=== PATIENT | female | born 1990 | race Caucasian/White ===

== ENCOUNTER 2018-07-25 18:47 | Emergency (ER) | payer BC ==
[~2018-07-25] VITALS: Ht 167.6 cm; Wt 86.4 kg
[2018-07-25 19:06] VITALS: Ht 167.6 cm; Wt 86.4 kg
[2018-07-25] MEDS ORDERED: KEFLEX500 MG PO (19:08)
[2018-07-25] MEDS ORDERED: LIPITOR20 MG PO (19:08)
[2018-07-25] MEDS ORDERED: TOPROL XL50 MG PO (19:09)
[2018-07-25] MEDS ORDERED: ELAVIL25 MG PO (19:09)
[2018-07-25] MEDS ORDERED: GLUCOPHAGE1000 MG PO (19:09)
[2018-07-25] MEDS ORDERED: NEURONTIN 300300 MG PO (19:09)
[2018-07-25] MEDS ORDERED: LEVEMIR IN100 UNITS/ SC (19:10)
[2018-07-25] MEDS ORDERED: NOVOLOG100 UNIT/1 SC (19:10)
[2018-07-25 20:09] LABS: BASOPHILS 0.4 % (0-2); EOSINOPHILS 1.9 % (0-7); HEMATOCRIT 37.7 % (36.0-48.0); HEMOGLOBIN 12.9 g/dL (12-16); IMMATURE GRANULOCYTES 0.1 % (0-5); LYMPHOCYTES 33.7 % (15-50); MCH 28.3 pg (26.0-34.0); MCHC 34.2 g/dL (31.0-37.0); MCV 82.7 fL (80.0-100.0); MEAN PLATELET VOLUME 9.1 fL (7.4-10.4); MONOCYTES 8.2 % (2-11); NEUTROPHILS 55.7 % (40-80); PLATELET COUNT 364 10x3/uL (130-400); RBC 4.56 10x6/uL (4.00-5.40); RDW 12.3 % (11.5-14.5); WBC 9.5 10x3/uL (4.8-10.8)
[2018-07-25 20:35] LABS: ALBUMIN 2.9 g/dL (3.4-5.0); ALKALINE PHOSPHATASE 81 U/L (46-116); ALT (SGPT) 34 U/L (10-68); BILIRUBIN - TOTAL 0.28 mg/dL (0.2-1.3); CALC OSMOLALITY 277 mosm/kg (275-300); CALCIUM 8.9 mg/dL (8.5-10.1); CARBON DIOXIDE 29.8 mmol/L (21.0-32.0); CHLORIDE - SERUM 102 mmol/L (98-107); CREATININE - SERUM 0.6 mg/dL (0.6-1.3); GLUCOSE 108 mg/dL (74-106); POTASSIUM - SERUM 3.6 mmol/L (3.5-5.1); PROTEIN - SERUM 7.7 g/dL (6.4-8.2); SODIUM 138 mmol/L (136-145); UREA NITROGEN 15 mg/dL (7-18); eGFR NON AFRICAN AMERICAN > 90 mL/min (90-120)
[2018-07-25] MEDS ORDERED: CLEOCIN HCL300 MG PO (20:55)
[2018-07-25 21:24] VITALS: BP 135/85
== END 2018-07-25 21:24 | disposition home or self-care (01) ==
LOC: D.ER 18:47
PROVIDERS: Emergency Medicine
DX: L03.032 Cellulitis of left toe (principal)

== ENCOUNTER 2019-01-23 19:02 | Observation (INO) | payer SELFPAY ==
[~2019-01-23] VITALS: Ht 167.6 cm; Wt 96.6 kg
[~2019-01-23 19:02] MED LIST: CLEOCIN HCL300 MG PO; ELAVIL25 MG PO; GLUCOPHAGE1000 MG PO; KEFLEX500 MG PO; LEVEMIR IN100 UNITS/ SC; LIPITOR20 MG PO; NEURONTIN 300300 MG PO; NOVOLOG100 UNIT/1 SC; TOPROL XL50 MG PO
[2019-01-23] MEDS ORDERED: NOVOLOG100 UNIT/1 SC (19:11)
[2019-01-23 19:32] LABS: BASOPHILS 0.3 % (0-2); EOSINOPHILS 1.4 % (0-7); HEMATOCRIT 43.8 % (36.0-48.0); HEMOGLOBIN 15.3 g/dL (12-16); IMMATURE GRANULOCYTES 0.2 % (0-5); LYMPHOCYTES 39.3 % (15-50); MCH 28.3 pg (26.0-34.0); MCHC 34.9 g/dL (31.0-37.0); MEAN PLATELET VOLUME 9.4 fL (7.4-10.4); MONOCYTES 6.6 % (2-11); NEUTROPHILS 52.2 % (40-80); PLATELET COUNT 392 10x3/uL (130-400); RBC 5.41 10x6/uL (4.00-5.40); RDW 12.3 % (11.5-14.5); WBC 10.5 10x3/uL (4.8-10.8)
--- NOTE | 2019-01-23 20:11 | NUR ---
URINE SENT TO LAB
[2019-01-23 20:18] LABS: ALBUMIN 3.3 g/dL (3.4-5.0); ALKALINE PHOSPHATASE 123 U/L (46-116); ALT (SGPT) 29 U/L (10-68); BILIRUBIN - TOTAL 0.28 mg/dL (0.2-1.3); CALCIUM 9.3 mg/dL (8.5-10.1); CARBON DIOXIDE 24.3 mmol/L (21.0-32.0); CHLORIDE - SERUM 95 mmol/L (98-107); CREATININE - SERUM 0.8 mg/dL (0.6-1.3); LIPASE 89 U/L (73-393); POTASSIUM - SERUM 3.7 mmol/L (3.5-5.1); PRO BNP 16 pg/mL (0-125); PROTEIN - SERUM 8.7 g/dL (6.4-8.2); SODIUM 132 mmol/L (136-145); THYROID STIMULATING HORMONE 5.08 uIU/mL (0.36-3.74); UREA NITROGEN 11 mg/dL (7-18); eGFR NON AFRICAN AMERICAN 90 mL/min (90-120)
[2019-01-23 20:20] LABS: APPEARANCE CLEAR (CLEAR); BILIRUBIN NEGATIVE (NEGATIVE); COLOR YELLOW (YELLOW); GLUCOSE 1000 mg/dL (NEGATIVE); KETONE MODERATE mg/dL (NEGATIVE); NITRITE NEGATIVE (NEGATIVE); PROTEIN NEGATIVE (NEGATIVE); UROBILINOGEN NORMAL (NORMAL)
[2019-01-23 20:21] LABS: BACTERIA MODERATE /hpf (NEGATIVE); EPITHELIAL CELLS 0-5 /hpf (0-5)
[2019-01-23 20:21] LABS: CALC OSMOLALITY 282 mosm/kg (275-300); GLUCOSE 439 mg/dL (74-106); TROPONIN-I < 0.017 ng/mL (0.000-0.060)
[2019-01-23 20:22] LABS: HCG URINE NEGATIVE (NEGATIVE)
[2019-01-23 20:37] LABS: UDS - AMPHET NEGATIVE QUAL (NEGATIVE); UDS - BARB NEGATIVE QUAL (NEGATIVE); UDS - BENZO NEGATIVE QUAL (NEGATIVE); UDS - COCAINE NEGATIVE QUAL (NEGATIVE); UDS - OPIATE NEGATIVE QUAL (NEGATIVE); UDS - PCP NEGATIVE QUAL (NEGATIVE); UDS - THC NEGATIVE QUAL (NEGATIVE)
[2019-01-23 20:39] VITALS: BP 114/62
[2019-01-23 21:05] VITALS: BP 122/88
--- NOTE | 2019-01-23 22:10 | NUR ---
CALLED REPORT TO YAJAIRA BROOKS AFFTER ROOM CHANGE TO ICU.
[2019-01-23 22:11] VITALS: BP 142/103
[2019-01-23 22:25] VITALS: BP 128/78
[2019-01-23 23:00] VITALS: BP 137/88
--- NOTE | 2019-01-23 23:30 | NUR ---
REPORT RECEIVED. PT ARRIVED TO UNIT VIA WHEELCHAIR FROM ER WITH NURSE AND . PT TRANSFERS SELF TO ICU BED, WITHOUT DIFFICULTY. PT ALERT AND ORIENTED. NO S/S OF DISTRESS. IV TO LEFT AC WITH NS AT 125ML/HR. NO NEEDS MADE KNOWN. CALL LIGHT IN REACH. WILL CONTINUE TO OBSERVE.
[2019-01-23 23:38] LABS: CALC OSMOLALITY 285 mosm/kg (275-300); CALCIUM 8.4 mg/dL (8.5-10.1); CARBON DIOXIDE 27.8 mmol/L (21.0-32.0); CHLORIDE - SERUM 101 mmol/L (98-107); CREATININE - SERUM 0.8 mg/dL (0.6-1.3); POTASSIUM - SERUM 3.6 mmol/L (3.5-5.1); SODIUM 136 mmol/L (136-145); UREA NITROGEN 11 mg/dL (7-18); eGFR NON AFRICAN AMERICAN 90 mL/min (90-120)
[2019-01-23 23:39] LABS: GLUCOSE 369 mg/dL (74-106)
[2019-01-24] VITALS (15 sets, daily range): BP systolic 91–130; BP diastolic 47–89; Ht 167.6 cm; Wt 96.6 kg
--- NOTE | 2019-01-24 01:20 | NUR ---
PT RESTING WITH EYES CLOSED AND CHEST RISING. NO S/S OF DISTRESS. WILL CONTINUE TO OBSERVE.
--- NOTE | 2019-01-24 03:26 | NUR ---
PT RESTING WITH EYES CLOSED AND CHEST RISING. NO S/S OF DISTRESS. CALL LIGHT IN REACH. EASILY AWOKEN TO VERBAL STIMULI. WILL CONTINUE TO OBSERVE.
[2019-01-24 04:03] LABS: BASOPHILS 0.3 % (0-2); EOSINOPHILS 2.6 % (0-7); HEMATOCRIT 37.8 % (36.0-48.0); HEMOGLOBIN 12.7 g/dL (12-16); IMMATURE GRANULOCYTES 0.2 % (0-5); LYMPHOCYTES 48.6 % (15-50); MCH 27.7 pg (26.0-34.0); MCHC 33.6 g/dL (31.0-37.0); MCV 82.4 fL (80.0-100.0); MEAN PLATELET VOLUME 9.4 fL (7.4-10.4); MONOCYTES 9.7 % (2-11); NEUTROPHILS 38.6 % (40-80); RBC 4.59 10x6/uL (4.00-5.40); RDW 12.6 % (11.5-14.5); WBC 8.8 10x3/uL (4.8-10.8)
[2019-01-24 04:34] LABS: PLATELET COUNT 313 10x3/uL (130-400)
[2019-01-24 04:54] LABS: KETONE - SERUM NEGATIVE (NEGATIVE)
[2019-01-24 04:55] LABS: ALBUMIN 2.5 g/dL (3.4-5.0); ALKALINE PHOSPHATASE 88 U/L (46-116); ALT (SGPT) 22 U/L (10-68); BILIRUBIN - TOTAL 0.25 mg/dL (0.2-1.3); CALCIUM 8.1 mg/dL (8.5-10.1); CARBON DIOXIDE 24.8 mmol/L (21.0-32.0); CHLORIDE - SERUM 107 mmol/L (98-107); CREATININE - SERUM 0.6 mg/dL (0.6-1.3); POTASSIUM - SERUM 3.4 mmol/L (3.5-5.1); PROTEIN - SERUM 6.7 g/dL (6.4-8.2); SODIUM 140 mmol/L (136-145); UREA NITROGEN 13 mg/dL (7-18); eGFR NON AFRICAN AMERICAN > 90 mL/min (90-120)
[2019-01-24 05:00] LABS: CALC OSMOLALITY 280 mosm/kg (275-300); GLUCOSE 134 mg/dL (74-106)
--- NOTE | 2019-01-24 07:00 | NUR ---
REPORT RECIEVED FROM THE OFF GOING RN. SEE ASSESSMENT IN THE PTS FLOW SHEET. PT DENIES PAIN. VSS. AT THIS TIME. MEAL TRAY PROVIDED FOR THE PT. CALL LIGTH IN REACH. WILL CONT POC.
--- NOTE | 2019-01-24 07:00 | NUR ---
PT USES CALL LIGHT FOR ASSIST WITH MONITOR WIRES, TO GO TO BATHROOM. ASSIST GIVEN. PT STATES THAT SHE HAD URINARY OUTPUT. REPORTED TO RECEIVING NURSE.
[2019-01-24 08:11] LABS: CALC OSMOLALITY 281 mosm/kg (275-300); CALCIUM 8.2 mg/dL (8.5-10.1); CARBON DIOXIDE 24.4 mmol/L (21.0-32.0); CHLORIDE - SERUM 105 mmol/L (98-107); CKMB 0.8 U/L (0.0-3.6); CREATINE KINASE 42 UL (21-215); CREATININE - SERUM 0.5 mg/dL (0.6-1.3); GLUCOSE 148 mg/dL (74-106); POTASSIUM - SERUM 3.5 mmol/L (3.5-5.1); SODIUM 139 mmol/L (136-145); UREA NITROGEN 14 mg/dL (7-18); eGFR NON AFRICAN AMERICAN > 90 mL/min (90-120)
[2019-01-24 08:12] LABS: TROPONIN-I < 0.017 ng/mL (0.000-0.060)
[2019-01-24 08:18] LABS: KETONE - SERUM NEGATIVE (NEGATIVE)
--- NOTE | 2019-01-24 11:00 | NUR ---
MEAL TRAY PROVIDED FOR THE PT.
[2019-01-24 11:08] LABS: CALC OSMOLALITY 283 mosm/kg (275-300); CALCIUM 7.8 mg/dL (8.5-10.1); CARBON DIOXIDE 22.4 mmol/L (21.0-32.0); CHLORIDE - SERUM 107 mmol/L (98-107); CREATININE - SERUM 0.7 mg/dL (0.6-1.3); GLUCOSE 265 mg/dL (74-106); POTASSIUM - SERUM 4.4 mmol/L (3.5-5.1); SODIUM 137 mmol/L (136-145); UREA NITROGEN 14 mg/dL (7-18); eGFR NON AFRICAN AMERICAN > 90 mL/min (90-120)
[2019-01-24] MEDS ORDERED: LEVEMIR IN100 UNITS/ SC (12:38)
[2019-01-24] MEDS ORDERED: NOVOLOG100 UNIT/1 SC (12:38)
[2019-01-24] MEDS ORDERED: HUMULIN R100 U/ML SC (12:39)
--- NOTE | 2019-01-24 13:07 | NUR ---
DR PETERSEN CALLED AND VERIFIED DC ORDERS. WILL PLAN TO DC. PT CALLING FRIENDS TO PICK HER UP.
--- NOTE | 2019-01-24 14:02 | NUR ---
DISCHARGE INSTRUCTIONS WENT OVER WITH THE PT. ALL BELONINGS ACCOUNTED FOR. PT LEFT WITH HER FRIEND IN A STABLE CONDITION.
== END 2019-01-24 14:03 | disposition home or self-care (01) ==
LOC: D.ER 19:02 → OBSVTIME 21:04 → D.CVICU 21:04 → D.M2 21:04 → D.ER 21:17 → D.CVICU 22:18
PROVIDERS: Family Medicine; ADMIT Internal Medicine Nephrology; ATTEND Internal Medicine Nephrology
DX: E11.10 Type 2 diabetes mellitus with ketoacidosis without coma (principal); E87.1 Hypo-osmolality and hyponatremia; E11.65 Type 2 diabetes mellitus with hyperglycemia; R07.9 Chest pain, unspecified; Z91.14 Patient's other noncompliance with medication regimen; E78.5 Hyperlipidemia, unspecified; K59.00 Constipation, unspecified; R00.0 Tachycardia, unspecified; I10 Essential (primary) hypertension

== ENCOUNTER 2019-05-20 17:09 | Inpatient (IN) | payer BC ==
[~2019-05-20] VITALS: Ht 167.6 cm; Wt 99.8 kg
[~2019-05-20 17:09] MED LIST changes: +AUGMENTIN 875-11 TAB PO; +HUMULIN R100 U/ML SC
[2019-05-20] MEDS ORDERED: CELEXA20 MG PO (17:46)
[2019-05-20 18:06] LABS: BASOPHILS 0.2 % (0-2); EOSINOPHILS 1.7 % (0-7); HEMATOCRIT 40.7 % (36.0-48.0); HEMOGLOBIN 13.9 g/dL (12-16); IMMATURE GRANULOCYTES 0.3 % (0-5); LYMPHOCYTES 35.6 % (15-50); MCH 27.9 pg (26.0-34.0); MCHC 34.2 g/dL (31.0-37.0); MCV 81.7 fL (80.0-100.0); MEAN PLATELET VOLUME 9.6 fL (7.4-10.4); MONOCYTES 5.6 % (2-11); NEUTROPHILS 56.6 % (40-80); PLATELET COUNT 302 10x3/uL (130-400); RBC 4.98 10x6/uL (4.00-5.40); RDW 12.5 % (11.5-14.5)
[2019-05-20 18:30] LABS: ALBUMIN 3.2 g/dL (3.4-5.0); ALKALINE PHOSPHATASE 111 U/L (30-120); ALT (SGPT) 24 U/L (10-68); BILIRUBIN - TOTAL 0.26 mg/dL (0.2-1.3); CALCIUM 9.3 mg/dL (8.5-10.1); CARBON DIOXIDE 22.3 mmol/L (21.0-32.0); CHLORIDE - SERUM 95 mmol/L (98-107); CREATININE - SERUM 0.8 mg/dL (0.6-1.3); POTASSIUM - SERUM 4.4 mmol/L (3.5-5.1); PROTEIN - SERUM 8.1 g/dL (6.4-8.2); SODIUM 125 mmol/L (136-145); UREA NITROGEN 13 mg/dL (7-18); eGFR NON AFRICAN AMERICAN 90 mL/min (90-120)
[2019-05-20 18:32] LABS: CALC OSMOLALITY 275 mosm/kg (275-300)
[2019-05-20 18:37] LABS: GLUCOSE 535 mg/dL (74-106)
[2019-05-20 18:56] LABS: BILIRUBIN NEGATIVE (NEGATIVE); GLUCOSE 1000 mg/dL (NEGATIVE); KETONE MODERATE mg/dL (NEGATIVE); NITRITE NEGATIVE (NEGATIVE); UROBILINOGEN NORMAL (NORMAL)
--- NOTE | 2019-05-20 19:40 | NUR ---
PT HAS BLISTERS TO RIGHT FOOT. ON BLISTER ON PAD OF FOOT. BLISTERS ON TWO MIDDLE TOES, AND OPEN BLISTER ON GREAT TOE WITH BLOOD TINGED DRAINAGE. GREAT TOE HAS SKIN PEELED BACK. PT DENIES PAIN AT THIS TIME.
--- NOTE | 2019-05-20 21:00 | NUR ---
PT AMBULATED TO REST ROOM INDEPENDENTLY. DRESSING APPLIED TO FOOT PRIOR TO AMBULATING.
[2019-05-20 23:28] VITALS: BP 130/76; BMI 35.6
--- NOTE | 2019-05-21 01:51 | NUR ---
2300)REC'FROM ER VIA . AAO X3.MODERATE AMT. SWELLING OBSERVED.BOTH FEET PARTIAL AMPUTATION LEFT GREAT TOE.RIGHT GREAT TOE BLISTER HAS BUSTED QUARTER IN SIZE WITH SKIN HANGING OFF.2ND,3RD DIME SIZE BLISTERS INTACT BACK OF TOES. WITH APPROX 3 1/2 IN IN LENGTH SUPERIOR SOLE ASPECT OF FOOT.FOOT WARM PINK,GOOD PEDAL PULSE,STATES FEET NUMB. WILL CONTINUE TO MONITOR FOR ANY CHGES IN NEUROVASCULAR STATUS AND FOLLOW CURRENT PLAN OF CARE.
--- NOTE | 2019-05-21 02:31 | NUR ---
I have reviewed this patient and I concur with the Shift Assessment completed by the Licensed Practical Nurse today this shift.
[2019-05-21 04:00] VITALS: BP 125/80
[2019-05-21 06:31] LABS: BASOPHILS 0.2 % (0-2); EOSINOPHILS 1.9 % (0-7); HEMATOCRIT 36.9 % (36.0-48.0); HEMOGLOBIN 12.6 g/dL (12-16); IMMATURE GRANULOCYTES 0.2 % (0-5); LYMPHOCYTES 27.4 % (15-50); MCH 27.8 pg (26.0-34.0); MCHC 34.1 g/dL (31.0-37.0); MCV 81.3 fL (80.0-100.0); MEAN PLATELET VOLUME 9.5 fL (7.4-10.4); MONOCYTES 7.4 % (2-11); NEUTROPHILS 62.9 % (40-80); PLATELET COUNT 271 10x3/uL (130-400); RBC 4.54 10x6/uL (4.00-5.40); RDW 12.4 % (11.5-14.5); WBC 8.9 10x3/uL (4.8-10.8)
[2019-05-21 07:06] LABS: ALBUMIN 2.6 g/dL (3.4-5.0); ALKALINE PHOSPHATASE 83 U/L (30-120); ALT (SGPT) 22 U/L (10-68); BILIRUBIN - TOTAL 0.53 mg/dL (0.2-1.3); CALC OSMOLALITY 280 mosm/kg (275-300); CALCIUM 8.2 mg/dL (8.5-10.1); CARBON DIOXIDE 24.4 mmol/L (21.0-32.0); CHLORIDE - SERUM 101 mmol/L (98-107); CREATININE - SERUM 0.7 mg/dL (0.6-1.3); POTASSIUM - SERUM 4.6 mmol/L (3.5-5.1); PROTEIN - SERUM 6.3 g/dL (6.4-8.2); SODIUM 134 mmol/L (136-145); UREA NITROGEN 11 mg/dL (7-18); eGFR NON AFRICAN AMERICAN > 90 mL/min (90-120)
[2019-05-21 07:17] LABS: GLUCOSE 348 mg/dL (74-106)
--- NOTE | 2019-05-21 07:33 | NUR ---
ALERT AND ORIENTED. LUNGS CLEAR BILATERALLY. HEART SOUNDS S1 AND S2 HEARD IN ALL HEREDIA. BOWEL SOUNDS ACTIVE X 4. BLISTERS TO PADS OF ALL TOES ON RIGHT FOOT AND TO PAD OF RIGHT FOOT. OPEN BLISTER TO RIGHT GREAT TOE. IV TO LEFT HAND PATENT WITHOUT REDNESS. DENIES NEEDS. BED LOW. CALL BROWN AND PERSONAL ITEMS IN REACH. REFUSES SCDS. WILL CONTINUE TO MONITOR.
[2019-05-21 09:11] VITALS: BP 138/95
[2019-05-21 12:37] VITALS: Ht 167.6 cm; Wt 99.8 kg
[2019-05-21 13:31] VITALS: BP 122/76
--- NOTE | 2019-05-21 17:32 | NUR ---
PATIENT BLOOD SUGAR STILL 413. SPOKE WITH SHANAE BRENNAN WHO STATES CHECK GLUCOSE AGAIN AT 1900 AND IF STILL GREATER THAN 400, GIVE 2100 DOSE OF LANTUS.
[2019-05-21 18:08] VITALS: BP 136/88
--- NOTE | 2019-05-21 18:48 | NUR ---
PATIENT GLUCOSE STILL 505. PM LANTUS GIVEN EARLY PER MD ORDER.
[2019-05-21 20:00] VITALS: BP 123/77
[2019-05-22] VITALS: BP 106/63
[2019-05-22 04:00] VITALS: BP 109/60
--- NOTE | 2019-05-22 04:12 | NUR ---
I have reviewed this patient and I concur with the Shift Assessment completed by the Licensed Practical Nurse today this shift.
[2019-05-22 05:11] LABS: BASOPHILS 0.3 % (0-2); EOSINOPHILS 2.5 % (0-7); HEMATOCRIT 37.1 % (36.0-48.0); HEMOGLOBIN 12.7 g/dL (12-16); IMMATURE GRANULOCYTES 0.2 % (0-5); LYMPHOCYTES 25.4 % (15-50); MCH 28.2 pg (26.0-34.0); MCHC 34.2 g/dL (31.0-37.0); MCV 82.3 fL (80.0-100.0); MEAN PLATELET VOLUME 9.3 fL (7.4-10.4); NEUTROPHILS 62.6 % (40-80); PLATELET COUNT 283 10x3/uL (130-400); RBC 4.51 10x6/uL (4.00-5.40); RDW 12.5 % (11.5-14.5); WBC 9.2 10x3/uL (4.8-10.8)
[2019-05-22 05:47] LABS: ALBUMIN 2.5 g/dL (3.4-5.0); ALKALINE PHOSPHATASE 86 U/L (30-120); ALT (SGPT) 22 U/L (10-68); BILIRUBIN - TOTAL 0.22 mg/dL (0.2-1.3); CALC OSMOLALITY 275 mosm/kg (275-300); CALCIUM 8.1 mg/dL (8.5-10.1); CARBON DIOXIDE 24.6 mmol/L (21.0-32.0); CHLORIDE - SERUM 101 mmol/L (98-107); CREATININE - SERUM 0.8 mg/dL (0.6-1.3); GLUCOSE 285 mg/dL (74-106); PROTEIN - SERUM 6.7 g/dL (6.4-8.2); SODIUM 133 mmol/L (136-145); UREA NITROGEN 13 mg/dL (7-18); eGFR NON AFRICAN AMERICAN 90 mL/min (90-120)
--- NOTE | 2019-05-22 07:36 | NUR ---
ALERT AND ORIENTED. LUNGS CLEAR BILATERALLY. HEART SOUNDS S1 AND S2 HEARD IN ALL HEREDIA. BOWEL SOUNDS ACTIVE X 4. DRSG TO RIGTH FOOT C/D/I. IV TO LEFT AC PATENT WITHOUT REDNESS. DENIES PAIN. DENIES NEEDS. BED LOW. CALL BROWN AND PERSONAL ITEMS IN REACH. WILL CONTINUE TO MONITOR.
[2019-05-22 09:53] VITALS: BP 110/69
--- NOTE | 2019-05-22 10:44 | NUR ---
DRSG CHANGED TO RIGHT FOOD WITH SILVADENE CREAME AND KERLIX PER ORDER D/T DRSG SOILED.
[2019-05-22 13:11] VITALS: BP 125/76
--- NOTE | 2019-05-22 13:58 | NUR ---
SPOKE WITH SHANAE KOENIG TO NOTIFY THAT PATIENT GLUCOSE LEVEL STILL CH AT 439. STATES TO CHANGE FROM INTERMEDIATE SCALE TO HIGH SCALE.
[2019-05-22 17:02] VITALS: BP 131/72
--- NOTE | 2019-05-22 17:30 | NUR ---
BLOOD SUGAR DECREASED TO 352 ON RECHECK.
[2019-05-22 20:00] VITALS: BP 129/84
--- NOTE | 2019-05-22 20:36 | NUR ---
REC'D.WALKING ROUNDS CHGE OF SHIFT.IV CHECKED FOR BLOOD RETURN,BLOOD RETURN OBSERVED,SITE CARE GIVEN NO REDNESS OR SWELLING OBSERVED.DRSG OBSERVED CLEAN AND DRY RIGHT FOOT.NEUROPATHY FEET BILAT. PEDAL PULSES PRESENT WITH 1+ EDEMA. CONTACT ISOLATION REMAINS INTACT. WILLCONTINUE TO MONITOR FOR ANY CHGES IN NEUROVASCULAR STATUS AND FOLLOW CURRENT PLAN OF CARE
[2019-05-23] VITALS: BP 104/61
[2019-05-23 04:00] VITALS: BP 106/54
[2019-05-23 06:45] LABS: BASOPHILS 0.2 % (0-2); EOSINOPHILS 3.1 % (0-7); HEMOGLOBIN 12.7 g/dL (12-16); IMMATURE GRANULOCYTES 0.2 % (0-5); LYMPHOCYTES 24.7 % (15-50); MCH 27.9 pg (26.0-34.0); MCHC 33.4 g/dL (31.0-37.0); MCV 83.3 fL (80.0-100.0); MEAN PLATELET VOLUME 9.3 fL (7.4-10.4); MONOCYTES 10.2 % (2-11); NEUTROPHILS 61.6 % (40-80); PLATELET COUNT 300 10x3/uL (130-400); RBC 4.56 10x6/uL (4.00-5.40); RDW 12.6 % (11.5-14.5); WBC 8.9 10x3/uL (4.8-10.8)
[2019-05-23 07:05] LABS: ALBUMIN 2.4 g/dL (3.4-5.0); ALKALINE PHOSPHATASE 85 U/L (30-120); ALT (SGPT) 23 U/L (10-68); BILIRUBIN - TOTAL 0.25 mg/dL (0.2-1.3); CALC OSMOLALITY 272 mosm/kg (275-300); CARBON DIOXIDE 25.3 mmol/L (21.0-32.0); CHLORIDE - SERUM 104 mmol/L (98-107); CREATININE - SERUM 0.6 mg/dL (0.6-1.3); POTASSIUM - SERUM 4.2 mmol/L (3.5-5.1); PROTEIN - SERUM 6.2 g/dL (6.4-8.2); SODIUM 136 mmol/L (136-145); UREA NITROGEN 11 mg/dL (7-18); eGFR NON AFRICAN AMERICAN > 90 mL/min (90-120)
[2019-05-23 07:11] LABS: GLUCOSE 136 mg/dL (74-106)
--- NOTE | 2019-05-23 07:48 | NUR ---
ALERT AND ORIENTED. LUNGS CLEAR BILATERALLY. HEART SOUNDS S1 AND S2 HEARD IN ALL HEREDIA. BOWEL SOUNDS ACTIVE X 4. DRSG TO RIGHT FOOT WITH DRAINAGE. WILL CHANGE THIS AM. IV TO LEFT AC PATENT WITHOUT REDNESS. BED LOW. CALL BROWN AND PERSONAL ITEMS IN REACH. WILL CONTINUE TO MONITOR.
--- NOTE | 2019-05-23 08:07 | NUR ---
I have reviewed this patient and I concur with the Shift Assessment completed by the Licensed Practical Nurse today this shift.
--- NOTE | 2019-05-23 09:14 | NUR ---
IV PAINFUL TO LEFT AC. REMOVED WITH TIP INTACT. RESITED TO RIGHT HAND WITH TIP INTACT. DRSG CHANGED TO RIGHT FOOT PER ORDER.
[2019-05-23 09:34] VITALS: BP 112/62
[2019-05-23 13:04] VITALS: BP 111/60
[2019-05-23 18:07] VITALS: BP 121/68
[2019-05-23 20:00] VITALS: BP 123/67
[2019-05-24] VITALS: BP 116/70
[2019-05-24 04:00] VITALS: BP 118/63
[2019-05-24 04:51] LABS: BASOPHILS 0.4 % (0-2); EOSINOPHILS 3.7 % (0-7); HEMATOCRIT 36.3 % (36.0-48.0); HEMOGLOBIN 12.1 g/dL (12-16); IMMATURE GRANULOCYTES 0.1 % (0-5); LYMPHOCYTES 27.9 % (15-50); MCHC 33.3 g/dL (31.0-37.0); MEAN PLATELET VOLUME 9.4 fL (7.4-10.4); MONOCYTES 10.5 % (2-11); NEUTROPHILS 57.4 % (40-80); PLATELET COUNT 285 10x3/uL (130-400); RBC 4.32 10x6/uL (4.00-5.40); RDW 12.6 % (11.5-14.5); WBC 7.1 10x3/uL (4.8-10.8)
[2019-05-24 05:06] LABS: ALBUMIN 2.2 g/dL (3.4-5.0); ALKALINE PHOSPHATASE 82 U/L (30-120); ALT (SGPT) 20 U/L (10-68); CALC OSMOLALITY 274 mosm/kg (275-300); CALCIUM 7.6 mg/dL (8.5-10.1); CARBON DIOXIDE 23.6 mmol/L (21.0-32.0); CHLORIDE - SERUM 107 mmol/L (98-107); CREATININE - SERUM 0.6 mg/dL (0.6-1.3); GLUCOSE 89 mg/dL (74-106); POTASSIUM - SERUM 3.7 mmol/L (3.5-5.1); PROTEIN - SERUM 6.3 g/dL (6.4-8.2); SODIUM 139 mmol/L (136-145); eGFR NON AFRICAN AMERICAN > 90 mL/min (90-120)
[2019-05-24 05:07] LABS: UREA NITROGEN 8 mg/dL (7-18)
[2019-05-24 08:43] VITALS: BP 116/58
--- NOTE | 2019-05-24 09:00 | NUR ---
ASSESSMENT PER FLOW SHEET. PT IS WITHOUT DISTRESS.ISOLATION MAINTAINED.
--- NOTE | 2019-05-24 10:00 | NUR ---
IV TAKEN OUT WITH CATH TIP INTACT.PATIENT REQUEST
[2019-05-24] MEDS ORDERED: FLORAJEN3 CAPS460 MG PO (11:06)
[2019-05-24] MEDS ORDERED: SILVADENE20 GM TOPICAL (11:06)
[2019-05-24] MEDS ORDERED: SMZ-TMP DS TABL1 TAB PO (11:25)
--- NOTE | 2019-05-24 12:58 | MORECARE ---
CASE MANAGEMENT DISCHARGE SUMMARY PATIENT: JAMILA CALVO UNIT: [id number] ADM DATE: 05/20/19 AGE: 28 : 88 SEX: F ROOM/BED: D.2216 AUTHOR: ALEN LUJAN PHYSICIAN: REFERRING PHYSICIAN: YOSELYN CLARK MD DATE OF SERVICE: 05/24/19 Discharge Plan Patient Name: JAMILA CALVO Facility: [facility]:[place] : 1990 Planned Disposition: Home or Self Care Anticipated Discharge Date: Discharge Date: Expected LOS: Initial Reviewer: [email or web address] Initial Review Date: 05/20/2019 Generated: 05/24/19 1:58 pm Patient Name: JAMILA CALVO Page 61494 at 1258 All edits/amendments must be made on the electronic document DICTATION DATE: 05/24/19 1258 FINANCE INTERN: MELIZA 05/24/19 1258 RPT#: [id number] DC DATE: STATUS: ADM IN [facility] [address] [place] [address] END OF REPORT
--- NOTE | 2019-05-24 13:06 | MORECARE ---
CASE MANAGEMENT DISCHARGE SUMMARY PATIENT: JAMILA CALVO UNIT: [id number] ADM DATE: 05/20/19 AGE: 28 : 88 SEX: F ROOM/BED: D.2216 AUTHOR: TAI,DOC PHYSICIAN: REFERRING PHYSICIAN: YOSELYN CLARK MD DATE OF SERVICE: 05/24/19 Discharge Plan Patient Name: JAMILA CALVO Facility: [facility]:[place] : 1990 Planned Disposition: Home or Self Care Anticipated Discharge Date: Discharge Date: Expected LOS: Initial Reviewer: [email or web address] Initial Review Date: 05/20/2019 Generated: 05/24/19 2:05 pm Comments DCP- Discharge Planning Updated by [email or web address]: Yeni Crain on 05/24/19 11:[address] Patient Name: JAMILA CALVO Admission Status: ER Accout number: [id number] Admission Date: 05-20-2019 : 1990 Admission Diagnosis: Attending: YOSELYN GARRETT Current LOS: 4 Anticipated DC Date: Planned Disposition: Home or Self Care Primary Insurance: [employer]IFE Discharge Planning Comments: CM met with patient to complete initial dc planning assessment. CM educated patient on the CM role and verbal consent given by patient to complete assessment. Patient lives at home with her spouse where she is independent with her care. At discharge patient plans to return home and feels this is a safe discharge. CM discussed availability of home health, rehab services, and medical equipment. Patient denied known discharge needs at this time. She is able to change her own dressing, I have given her some extra gauze and 4x4's for her to take home. CM will continue to follow and will assist as needed with dc plans/needs. Medication Coordinator: Yeni Crain DCPIA - Discharge Planning Initial Assessment Updated by [email or web address]: Yeni Crain on 05/24/19 1:00 pm * Is the patient Alert and Oriented? Yes * How many steps to enter\exit or inside your home? 4/0 * PCP none * Pharmacy [facility] [address] * Preadmission Environment Home with Family * ADLs Independent * Equipment None * List name and contact numbers for known caregivers / representatives who currently or will assist patient after discharge: Tung edmond [phone] * Verbal permission to speak to the caregivers and representatives has been obtained from the patient. N/A * Community resources currently utilized None * Additional services required to return to the preadmission environment? No * Can the patient safely return to the preadmission environment? Yes * Has this patient been hospitalized within the prior 30 days at any hospital? No Last DP export: 05/24/19 11:58 am Patient Name: JAMILA CALVO Page 17259 at 1306 All edits/amendments must be made on the electronic document DICTATION DATE: 05/24/19 1305 CHEMICAL WORKER: MELIZA 05/24/19 1305 RPT#: [id number] DC DATE: STATUS: ADM IN [facility] [address] [place] [address] END OF REPORT
--- NOTE | 2019-05-24 13:32 | NUR ---
LEFT UNIT AMBULATORY FOR TRANSPORT HOME. DECLINED WHEELCHAIR
--- NOTE | 2019-05-27 12:09 | MORECARE ---
CASE MANAGEMENT DISCHARGE SUMMARY PATIENT: JAMILA CALVO UNIT: [id number] ADM DATE: 05/20/19 AGE: 28 : 88 SEX: F ROOM/BED: D.2216 AUTHOR: TAI,DOC PHYSICIAN: REFERRING PHYSICIAN: YOSELYN CLARK MD DATE OF SERVICE: 05/27/19 Discharge Plan Patient Name: JAMILA CALVO Facility: [facility]:[place] : 1990 Planned Disposition: Home or Self Care Anticipated Discharge Date: Discharge Date: 05/24/2019 Expected LOS: 0 Initial Reviewer: [email or web address] Initial Review Date: 05/20/2019 Generated: 05/27/19 1:08 pm Comments DCP- Discharge Planning Updated by [email or web address]: Yeni Crain on 05/24/19 10:[address] Patient Name: JAMILA CALVO Admission Status: ER Accout number: [id number] Admission Date: 05-20-2019 : 1990 Admission Diagnosis: Attending: YOSELYN GARRETT Current LOS: 4 Anticipated DC Date: Planned Disposition: Home or Self Care Primary Insurance: [employer]IFE Discharge Planning Comments: CM met with patient to complete initial dc planning assessment. CM educated patient on the CM role and verbal consent given by patient to complete assessment. Patient lives at home with her spouse where she is independent with her care. At discharge patient plans to return home and feels this is a safe discharge. CM discussed availability of home health, rehab services, and medical equipment. Patient denied known discharge needs at this time. She is able to change her own dressing, I have given her some extra gauze and 4x4's for her to take home. CM will continue to follow and will assist as needed with dc plans/needs. Concrete Batch Plant Operator: Yeni Crain DCPIA - Discharge Planning Initial Assessment Updated by [email or web address]: Yeni Carin on 05/24/19 1:00 pm * Is the patient Alert and Oriented? Yes * How many steps to enter\exit or inside your home? 4/0 * PCP none * Pharmacy [facility] [address] * Preadmission Environment Home with Family * ADLs Independent * Equipment None * List name and contact numbers for known caregivers / representatives who currently or will assist patient after discharge: Tung edmond [phone] * Verbal permission to speak to the caregivers and representatives has been obtained from the patient. N/A * Community resources currently utilized None * Additional services required to return to the preadmission environment? No * Can the patient safely return to the preadmission environment? Yes * Has this patient been hospitalized within the prior 30 days at any hospital? No Last DP export: 05/24/19 11:06 am Patient Name: JAMILA CALVO Page 49500 at 1209 All edits/amendments must be made on the electronic document DICTATION DATE: 05/27/191207 POWER DRIVEN BRUSH MAKER: MELIZA 05/27/191207 RPT#: [id number] DC DATE:05/24/19 STATUS: DIS IN [facility] [address] [place] [address] END OF REPORT
== END 2019-05-24 13:32 | disposition home or self-care (01) | DRG 623 ==
LOC: D.ER 17:09 → D.MS 21:25
PROVIDERS: Emergency Medicine; Family Medicine; Podiatrist Foot & Ankle Surgery; ADMIT Family Medicine; ATTEND Family Medicine
PROC: 0JBQ0ZZ Excision of Right Foot Subcutaneous Tissue and Fascia, Open Approach (ICD-10-PCS; principal; 2019-05-21)
DX: E11.628 Type 2 diabetes mellitus with other skin complications (principal); E87.1 Hypo-osmolality and hyponatremia; L02.611 Cutaneous abscess of right foot; L03.031 Cellulitis of right toe; E11.65 Type 2 diabetes mellitus with hyperglycemia; E11.40 Type 2 diabetes mellitus with diabetic neuropathy, unspecified; E66.9 Obesity, unspecified; Z68.35 Body mass index [BMI] 35.0-35.9, adult; B95.62 Methicillin resistant Staphylococcus aureus infection as the cause of diseases classified elsewhere; B96.20 Unspecified Escherichia coli [E. coli] as the cause of diseases classified elsewhere